=== PATIENT | male | born 1960 | race Caucasian/White ===

== ENCOUNTER 2021-02-24 01:22 | Emergency (ER) | payer BC ==
[2021-02-24] MEDS ORDERED: fentaNYL 100 MCG/2 ML SDV IVPUSH ONE ×2 (01:38→04:23)
[2021-02-24] MEDS ORDERED: Ondansetron 4 MG/2 ML SDV IVPUSH ONE (01:38)
--- NOTE | 2021-02-24 01:42 | EDM.PDOC ---
ED HPI GENERAL MEDICAL PROBLEM - General Chief Complaint: Abdominal Pain Stated Complaint: ABDOMINAL PAIN Time Seen by Provider: 02/24/21 01:40 Source of Information: Reports: Patient History Limitations: Reports: No Limitations - History of Present Illness INITIAL COMMENTS - FREE TEXT/NARRATIVE: 60 yo male with severe abdominal pain x 3hrs. Associated with vomiting,obstipation. Gomez a h/o CROHN'S disease.His PMH also includes HTN and DM and a partial colon resection in 2016. Abdominal Pain Score (Numeric/FACES): 10 - Related Data Allergies Allergy/AdvReac Type Severity Reaction Status Date / Time morphine Allergy Rash Verified 02/24/21 11:27 Home Meds: Home Meds Aspirin [Halfprin] 81 mg PO DAILY 12/26/15 [History] Lisinopril 5 mg PO DAILY 12/26/15 [History] Omeprazole 40 mg PO DAILY PRN 12/26/15 [History] Simvastatin 10 mg PO BEDTIME 12/26/15 [History] metFORMIN [Glucophage] 1,000 mg PO BID 12/26/15 [History] sitaGLIPtin Phosphate [Januvia] 100 mg PO DAILY 12/26/15 [History] LORazepam [Ativan] 1 mg PO TID PRN 02/24/21 [History] Past Medical History HEENT History: Reports: Cataract, Impaired Vision Cardiovascular History: Reports: High Cholesterol, Hypertension Gastrointestinal History: Reports: Gastritis, GERD, Hemorrhoids, Inflammatory Bowel Disease Psychiatric History: Reports: Anxiety Endocrine/Metabolic History: Reports: Diabetes, Type II Hematologic History: Reports: Anemia, Blood Transfusion(s), Iron Deficiency, Other (See Below) Other Hematologic History: States his iron deficiency is a result of his Crohn's disease. - Infectious Disease History Infectious Disease History: Reports: Chicken Pox, Influenza, Measles, Mumps - Past Surgical History HEENT Surgical History: Reports: Adenoidectomy, Cataract Surgery, Oral Surgery, Tonsillectomy GI Surgical History: Reports: Colonoscopy, EGD, Other (See Below) Social & Family History - Family History Family Medical History: No Pertinent Family History Cardiac: Reports: None Respiratory: Reports: COPD GI: Reports: Other (See Below) Other GI Family History: ulcerative colitis : Reports: None OBGYN: Reports: None Musculoskeletal: Reports: None Neurological: Reports: None Psychiatric: Reports: Anxiety Endocrine/Metabolic: Reports: Diabetes, Type I Hematologic: Reports: None Immunologic: Reports: None Dermatologic: Reports: None Oncologic: Reports: None - Caffeine Use Caffeine Use: Reports: Coffee ED ROS GENERAL - Review of Systems Review Of Systems: Comprehensive ROS is negative, except as noted in HPI. ED EXAM, GI/ABD - Physical Exam Exam: See Below Exam Limited By: No Limitations General Appearance: Alert, WD/WN Eyes: Bilateral: Normal Appearance, EOMI Throat/Mouth: Normal Inspection, Normal Lips, Normal Teeth, Normal Gums, Normal Oropharynx, Normal Voice, No Airway Compromise Neck: Normal Inspection Respiratory/Chest: No Respiratory Distress GI/Abdominal Exam: Distended, Rigid Extremities: Normal Inspection Psychiatric: Normal Affect Skin Exam: Warm Course - Vital Signs Last Recorded V/S: Last Vital Signs Temp 98.5 F 02/24/21 12:55 Pulse 98 02/24/21 12:55 Resp 17 02/24/21 12:55 BP 133/85 02/24/21 12:55 Pulse Ox 95 02/24/21 12:55 - Orders/Labs/Meds Labs: Laboratory Tests 02/24/21 02/24/21 02/24/21 Range/Units 01:48 01:48 01:48 WBC 12.5 H (3.2-10.1) x10-3/uL RBC 5.32 (3.90-5.90) x10(6)uL Hgb 15.4 (12.9-17.7) g/dL Hct 46.3 (38.3-50.1) % MCV 87.1 (80.8-98.7) fL MCH 28.9 (27.0-33.3) pg MCHC 33.2 (28.7-35.3) g/dL RDW 17.3 H (12.4-15.0) % Plt Count 267 (117-477) x10(3)uL MPV 6.6 L (6.7-11.0) fL Neut % (Auto) 84.8 H (40.3-71.8) % Lymph % (Auto) 6.4 L (15.8-45.3) % [place] % (Auto) 8.0 (5.5-15.2) % Eos % (Auto) 0.6 (0.1-6.8) % Baso % (Auto) 0.2 L (0.3-3.8) % Neut # (Auto) 10.6 H (1.7-6.9) x10-3/uL Lymph # (Auto) 0.8 (0.5-4.5) x10-3/uL [place] # (Auto) 1.0 (0.0-1.2) x10-3/uL Eos # (Auto) 0.1 (0.0-0.6) x10-3/uL Baso # (Auto) 0.0 (0.0-0.3) x10-3/uL Sodium 138 (135-145) mmol/L Potassium 4.1 (3.5-5.3) mmol/L Chloride 98 L (100-110) mmol/L Carbon Dioxide 29 (21-32) mmol/L BUN 14 (7-18) mg/dL Creatinine 1.2 (0.70-1.30) mg/dL Est Cr Clr Drug Dosing TNP Estimated GFR (MDRD) > 60 (>60) BUN/Creatinine Ratio 11.7 (9-20) Glucose 160 H (80-116) mg/dL Lactic Acid 1.9 (0.4-2.0) mmol/L Calcium 9.5 (8.6-10.2) mg/dL Total Bilirubin 0.9 (0.1-1.3) mg/dL AST 19 (5-25) IU/L ALT 41 H D (12-36) U/L Alkaline Phosphatase 78 (56-112) IU/L C-Reactive Protein (0.5-0.9) mg/dL Total Protein 7.7 (6.0-8.0) g/dL Albumin 4.2 (3.2-4.6) g/dL Globulin 3.5 g/dL Albumin/Globulin Ratio 1.2 02/24/21 Range/Units 01:48 WBC (3.2-10.1) x10-3/uL RBC (3.90-5.90) x10(6)uL Hgb (12.9-17.7) g/dL Hct (38.3-50.1) % MCV (80.8-98.7) fL MCH (27.0-33.3) pg MCHC (28.7-35.3) g/dL RDW (12.4-15.0) % Plt Count (117-477) x10(3)uL MPV (6.7-11.0) fL Neut % (Auto) (40.3-71.8) % Lymph % (Auto) (15.8-45.3) % [place] % (Auto) (5.5-15.2) % Eos % (Auto) (0.1-6.8) % Baso % (Auto) (0.3-3.8) % Neut # (Auto) (1.7-6.9) x10-3/uL Lymph # (Auto) (0.5-4.5) x10-3/uL [place] # (Auto) (0.0-1.2) x10-3/uL Eos # (Auto) (0.0-0.6) x10-3/uL Baso # (Auto) (0.0-0.3) x10-3/uL Sodium (135-145) mmol/L Potassium (3.5-5.3) mmol/L Chloride (100-110) mmol/L Carbon Dioxide (21-32) mmol/L BUN (7-18) mg/dL Creatinine (0.70-1.30) mg/dL Est Cr Clr Drug Dosing Estimated GFR (MDRD) (>60) BUN/Creatinine Ratio (9-20) Glucose (80-116) mg/dL Lactic Acid (0.4-2.0) mmol/L Calcium (8.6-10.2) mg/dL Total Bilirubin (0.1-1.3) mg/dL AST (5-25) IU/L ALT (12-36) U/L Alkaline Phosphatase (56-112) IU/L C-Reactive Protein 1.7 H (0.5-0.9) mg/dL Total Protein (6.0-8.0) g/dL Albumin (3.2-4.6) g/dL Globulin g/dL Albumin/Globulin Ratio Meds: Medications Discontinued Medications Generic Name Dose Route Start Last Admin Trade Name Freq PRN Reason Stop Dose Admin Fentanyl 100 mcg 02/24/21 01:38 02/24/21 01:57 Fentanyl 100 Mcg/2 Ml Sdv IVPUSH 02/24/21 01:39 100 mcg ONETIME ONE Administration Fentanyl 100 mcg 02/24/21 03:20 Fentanyl 100 Mcg/2 Ml Sdv IVPUSH Q4H PRN Breakthrough Pain Fentanyl 100 mcg 02/24/21 04:23 02/24/21 04:29 Fentanyl 100 Mcg/2 Ml Sdv IVPUSH 02/24/21 04:24 100 mcg ONETIME ONE Administration Sodium Chloride 1,000 mls @ 999 mls/hr 02/24/21 01:45 02/24/21 01:55 Normal Saline IV 999 mls/hr ASDIRECTED VANCE Administration Sodium Chloride 1,000 mls @ 125 mls/hr 02/24/21 03:30 02/24/21 11:50 Normal Saline IV 125 mls/hr ASDIRECTED VANCE Administration Sodium Chloride 1,000 mls @ 125 mls/hr 02/24/21 16:00 Normal Saline IV ASDIRECTED VANCE Iopamidol 100 ml 02/24/21 02:26 02/24/21 02:52 Iopamidol 755 Mg/Ml 100 Ml Bottle IV 02/24/21 02:27 100 ml . DIRECTED ONE Administration Lorazepam 0.5 mg 02/24/21 06:05 02/24/21 09:35 Lorazepam 2 Mg/Ml Sdv IVPUSH 0.5 mg Q6H PRN Administration Anxiety Metoclopramide HCl 10 mg 02/24/21 04:23 02/24/21 04:29 Metoclopramide 10 Mg/2 Ml Sdv IVPUSH 02/24/21 04:24 10 mg ONETIME ONE Administration Ondansetron HCl 8 mg 02/24/21 01:38 02/24/21 01:56 Ondansetron 4 Mg/2 Ml Sdv IVPUSH 02/24/21 01:39 8 mg ONETIME ONE Administration Ondansetron HCl 4 mg 02/24/21 03:20 Ondansetron 4 Mg/2 Ml Sdv IVPUSH Q4H PRN Nausea/Vomiting Departure - Departure Time of Disposition: 11:20 Disposition: DC/Tfer to [facility] 02 Clinical Impression: SBO (small bowel obstruction) Abdominal pain Qualifiers: Abdominal location: generalized Qualified Code(s): R10.84 - Generalized abdominal pain - Discharge Information Referrals: Davis Quiñones MD [Primary Care Provider] - Forms: ED Department Discharge Sepsis Event Note (ED) - Evaluation Sepsis Screening Result: No Definite Risk - Problem List & Annotations (1) Abdominal pain SNOMED Code(s): 02701810 Code(s): R10.9 - UNSPECIFIED ABDOMINAL PAIN Status: Acute Qualifiers: Abdominal location: generalized Qualified Code(s): R10.84 - Generalized abdominal pain (2) SBO (small bowel obstruction) SNOMED Code(s): 091349855 Code(s): K56.609 - UNSP INTESTNL OBST, UNSP TO PARTIAL VERSUS COMPLETE OBST Status: Acute - Problem List Review Problem List Initiated/Reviewed/Updated: Yes - Assessment/Plan Plan: IV access,CBC,CMP,CT abd pelvis.. We gave him fluids CT showed SBO. IV Fentanyl given. I called Jose,and then Gloria. Will transfer him when bed available.
[2021-02-24] MEDS ORDERED: Sodium Chloride 0.9% 1,000 ML IV SCH ×2 (01:45→16:00)
[2021-02-24] MEDS ORDERED: Iopamidol 755 Mg/ML 100 ML Bottle IV ONE (02:26)
[2021-02-24] MEDS ORDERED: Ondansetron 4 MG/2 ML SDV IVPUSH PRN (03:20)
[2021-02-24] MEDS ORDERED: fentaNYL 100 MCG/2 ML SDV IVPUSH PRN (03:20)
[2021-02-24] MEDS: Sodium Chloride 0.9% 1,000 ML IV SCH ×2 (03:43→11:50)
[2021-02-24] MEDS ORDERED: Metoclopramide 10 MG/2 ML SDV IVPUSH ONE (04:23)
[2021-02-24] MEDS ORDERED: LORazepam 2 MG/ML SDV IVPUSH PRN (06:05)
[2021-02-24 14:16] VITALS: BP 133/85; PULSE 98
--- NOTE | 2021-02-27 11:34 | CR ---
CHEST ONE VIEW INDICATION: ID if the tube is coiled. AP portable upright view of the chest was obtained and revealed the heart to be normal in size. The aorta is slightly tortuous. A definite active infiltrate or effusion was not identified. Nasogastric tube is noted in place with its tip in the gastric fundal area. It should be advanced approximately 10 to 15 cm for better positioning. MTDD
== END 2021-02-24 13:20 ==
LOC: FB.ED 01:22
DX: K56.609 Unspecified intestinal obstruction, unspecified as to partial versus complete obstruction (principal); E78.00 Pure hypercholesterolemia, unspecified; I10 Essential (primary) hypertension; K21.9 Gastro-esophageal reflux disease without esophagitis; E11.9 Type 2 diabetes mellitus without complications; Z88.5 Allergy status to narcotic agent; Z79.82 Long term (current) use of aspirin; Z79.84 Long term (current) use of oral hypoglycemic drugs; Z79.899 Other long term (current) drug therapy
CPT/HCPCS: 36415; 43752; 71045; 74177; 80053; 83605; 85025; 86140; 96374; 96375; 96376; 99285; J2060; J2405; J2765; J3010; J7030; Q9967